=== PATIENT | male | born 1990 | race African-American/Black ===

== ENCOUNTER 2020-11-01 12:21 | Emergency (ER) | payer MEDICAID, OTHER ==
[~2020-11-01] VITALS: Ht 170.2 cm; Wt 64.0 kg
[~2020-11-01 12:21] MED LIST: ALBUTEROL
[2020-11-01] MEDS ORDERED: IPRATROPIUM BROMIDE (0.02%) 0.5MG/2.5ML NEB HHN STA (12:32)
[2020-11-01] MEDS ORDERED: METHYLPREDNISOLONE SOD SUCC 125 MG/2 ML VIAL IV STA (12:32)
[2020-11-01] MEDS ORDERED: MAGNESIUM 2 G PREMIX 50 ML IV ONE (12:45)
[2020-11-01 12:52] LABS: BASOPHILS % 0.8 % (0.0-2.0); EOSINOPHILS % 7.8 % (0.0-5.0); HEMATOCRIT. 47.5 % (42.0-52.0); HEMOGLOBIN. 15.6 g/dL (14.0-18.0); LYMPHOCYTES % 28.8 % (20.0-50.0); MEAN CORPUSCULAR HEMOGLOBIN 27.7 pg (28.0-32.0); MEAN CORPUSCULAR VOLUME 84.2 fL (80.0-94.0); MONOCYTES % 6.3 % (2.0-8.0); NEUTROPHILS % 56.3 % (40.0-76.0); PLATELET 242 x1000/uL (130-400); RED BLOOD CELL COUNT 5.64 mill/uL (4.7-6.1); RED CELL DISTRIBUTION WIDTH 13.8 % (11.6-14.6)
[2020-11-01 12:57] LABS: CHLORIDE 111 mEq/L (98-107)
[2020-11-01] MEDS ORDERED: ALBUTEROL (0.083%) 2.5MG/3ML NEB HHN SCH (13:00)
[2020-11-01 13:41] LABS: BG BASE EXCESS -0.1 mmol/L (-2.0-2.0); BG CARBOXYHEMOGLOBIN 0.7 % (0.5-1.5); BG DEOXYHEMOGLOBIN 0.8 % (0.0-5.0); BG FRACTION INSPIRED OXYGEN 60; BG HCO3 ACT 25.5 mmol/L (22.0-26.0); BG METHEMOGLOBIN 0.2 % (0.0-1.5); BG OXYGEN SATURATION 99.2 % (92.0-98.5); BG OXYHEMOGLOBIN 98.3 % (94.0-97.0); BG PCO2 44.6 mmHg (35.0-45.0); BG PH 7.375 (7.350-7.450); BG PO2 200.1 mmHg (75.0-100.0); BG SAMPLE SITE LEFT BRACHIAL; BG VENT MODE MASK - BIPAP
[2020-11-01] MEDS ORDERED: P50 MT (16:58)
[2020-11-01 17:13] VITALS: BP 119/68
== END 2020-11-01 17:19 | disposition home or self-care (01) ==
LOC: ER 12:21
DX: J45.901 Unspecified asthma with (acute) exacerbation (principal); G40.909 Epilepsy, unspecified, not intractable, without status epilepticus
CPT/HCPCS: 36415; 36600; 71045; 80053; 82375; 82805; 85025; 94640; 94660; 96365; 96375; 99285; J2930; J3475; Z7610

== ENCOUNTER 2020-11-22 04:50 | Emergency (ER) | payer MEDICAID, OTHER ==
[~2020-11-22] VITALS: Ht 177.8 cm; Wt 72.0 kg
[~2020-11-22 04:50] MED LIST changes: +P50 MT
[2020-11-22] MEDS ORDERED: METHYLPREDNISOLONE SOD SUCC 125 MG/2 ML VIAL IV STA (05:04)
[2020-11-22] MEDS ORDERED: MAGNESIUM 2 G PREMIX 50 ML IV STA (05:04)
[2020-11-22] MEDS ORDERED: IPRATROPIUM BROMIDE (0.02%) 0.5MG/2.5ML NEB HHN STA (05:04)
[2020-11-22] MEDS ORDERED: ALBUTEROL (0.083%) 2.5MG/3ML NEB HHN STA (05:04)
[2020-11-22] MEDS ORDERED: SODIUM CHLORIDE 0.9% 1,000 ML IV ONE (05:30)
[2020-11-22 07:00] VITALS: BP 115/67
== END 2020-11-22 07:22 | disposition home or self-care (01) ==
LOC: ER 04:50
DX: J45.901 Unspecified asthma with (acute) exacerbation (principal)
CPT/HCPCS: 71045; 93005; 94640; 96365; 96375; 99285; J2930; J3475; J7030; Z7610

== ENCOUNTER 2021-02-03 09:01 | Emergency (ER) | payer MEDICAID, OTHER ==
[~2021-02-03] VITALS: Ht 165.1 cm; Wt 59.0 kg
[2021-02-03] MEDS ORDERED: ALBUTEROL (0.083%) 2.5MG/3ML NEB HHN STA (09:09)
[2021-02-03] MEDS ORDERED: IPRATROPIUM BROMIDE (0.02%) 0.5MG/2.5ML NEB HHN STA (09:09)
[2021-02-03] MEDS ORDERED: PREDNISONE 20MG TABLET PO STA (09:09)
[2021-02-03 10:03] VITALS: BP 120/65
[2021-02-03] MEDS ORDERED: ALBU2.5V13 NEB (10:33)
[2021-02-03] MEDS ORDERED: P50 PO (10:33)
== END 2021-02-03 10:54 | disposition home or self-care (01) ==
LOC: ER 09:01
DX: J45.901 Unspecified asthma with (acute) exacerbation (principal); Z76.0 Encounter for issue of repeat prescription
CPT/HCPCS: 71045; 94640; 99283; Z7610

== ENCOUNTER 2021-07-13 21:56 | Emergency (ER) | payer MEDICAID ==
[~2021-07-13] VITALS: Ht 170.2 cm; Wt 80.0 kg
[~2021-07-13 21:56] MED LIST changes: +ALBU2.5V13 NEB; +P50 PO
[2021-07-13] MEDS ORDERED: ALBUTEROL (0.083%) 2.5MG/3ML NEB HHN STA (22:38)
[2021-07-13] MEDS ORDERED: IPRATROPIUM BROMIDE (0.02%) 0.5MG/2.5ML NEB HHN STA (22:38)
[2021-07-13] MEDS ORDERED: PREDNISONE 20MG TABLET PO STA (22:38)
[2021-07-13 23:11] LABS: BASOPHILS % 0.5 % (0.0-2.0); CHLORIDE 111 mEq/L (98-107); EOSINOPHILS % 5.3 % (0.0-5.0); HEMATOCRIT. 40.7 % (42.0-52.0); HEMOGLOBIN. 13.7 g/dL (14.0-18.0); LYMPHOCYTES % 16.3 % (20.0-50.0); MEAN CORPUSCULAR HEMOGLOBIN 28.4 pg (28.0-32.0); MEAN CORPUSCULAR VOLUME 84.5 fL (80.0-94.0); MEAN PLATELET VOLUME 8.1 fl (7.4-10.4); MONOCYTES % 5.1 % (2.0-8.0); NEUTROPHILS % 72.8 % (40.0-76.0); PLATELET 257 x1000/uL (130-400); RED BLOOD CELL COUNT 4.81 mill/uL (4.7-6.1); RED CELL DISTRIBUTION WIDTH 14.1 % (11.6-14.6)
[2021-07-14] MEDS ORDERED: ALBU18HF2 IH (00:27)
[2021-07-14] MEDS ORDERED: P50 MT (00:27)
[2021-07-14 00:30] VITALS: BP 112/59
== END 2021-07-14 00:38 | disposition home or self-care (01) ==
LOC: ER 21:56
DX: J45.901 Unspecified asthma with (acute) exacerbation (principal); F12.10 Cannabis abuse, uncomplicated; Z86.59 Personal history of other mental and behavioral disorders
CPT/HCPCS: 36415; 71045; 80053; 84484; 85025; 93005; 94644; 99285; J7512; Z7610

== ENCOUNTER 2022-03-05 10:12 | Emergency (ER) | payer MEDICAID, OTHER ==
[~2022-03-05] VITALS: Ht 170.2 cm; Wt 77.0 kg
[~2022-03-05 10:12] MED LIST changes: +ALBU18HF2 IH
[2022-03-05] MEDS ORDERED: IPRATROPIUM BROMIDE (0.02%) 0.5MG/2.5ML NEB HHN STA (10:24)
[2022-03-05] MEDS ORDERED: METHYLPREDNISOLONE SOD SUCC 125 MG/2 ML VIAL IV STA (10:24)
[2022-03-05] MEDS: ALBUTEROL (0.083%) 2.5MG/3ML NEB HHN SCH ×2 (10:33→10:49)
[2022-03-05 10:38] LABS: BASOPHILS % 0.7 % (0.0-2.0); EOSINOPHILS % 4.3 % (0.0-5.0); HEMATOCRIT. 49.2 % (42.0-52.0); HEMOGLOBIN. 16.3 g/dL (14.0-18.0); LYMPHOCYTES % 42.5 % (20.0-50.0); MEAN CORPUSCULAR HEMOGLOBIN 28.6 pg (28.0-32.0); MEAN CORPUSCULAR VOLUME 86.6 fL (80.0-94.0); MEAN PLATELET VOLUME 8.8 fl (7.4-10.4); MONOCYTES % 8.9 % (2.0-8.0); NEUTROPHILS % 43.6 % (40.0-76.0); PLATELET 194 x1000/uL (130-400); RED BLOOD CELL COUNT 5.69 mill/uL (4.7-6.1); RED CELL DISTRIBUTION WIDTH 14.3 % (11.6-14.6)
[2022-03-05 10:44] LABS: CHLORIDE 105 mEq/L (98-107)
[2022-03-05] MEDS ORDERED: P50 MT (12:10)
[2022-03-05] MEDS ORDERED: IPRA3AMP9 NEB (12:12)
[2022-03-05 12:40] VITALS: BP 115/75
== END 2022-03-05 12:58 | disposition home or self-care (01) ==
LOC: ER 10:12
DX: J45.901 Unspecified asthma with (acute) exacerbation (principal); F12.10 Cannabis abuse, uncomplicated; Z79.899 Other long term (current) drug therapy
CPT/HCPCS: 36415; 71045; 80053; 83880; 84484; 85025; 93005; 94640; 96374; 99291; J2930; Z7610